=== PATIENT | female | born 1985 | race Caucasian/White ===

== ENCOUNTER 2019-03-09 20:36 | Emergency (ER) | payer MEDICAID ==
[~2019-03-09] VITALS: Ht 162.6 cm; Wt 49.9 kg
[2019-03-09 21:12] VITALS: BP 109/59
--- NOTE | 2019-03-09 21:34 | Emergency Room Report ---
History of Present Illness General Chief Complaint: Female Urogenital Problems Source: Patient Present Illness HPI She is a 31-year-old female who presented after possible retained tampon. She denies any significant pain. She states she is currently on her menses. Patient attempted to remove the tampon and did not have any success. She denies any fever or discharge. She denies any significant pain. She reports having regular menses. Allergies: Coded Allergies: MONOSODIUM GLUTAMATE (Verified Allergy, Unknown, 03/09/19) Patient History Past Medical History: see triage record Last Menstrual Period: T Now: No Reviewed Nursing Documentation: PMH: Agreed; PSxH: Agreed Nursing Documentation-PMH Past Medical History: No History, Except For Review of Systems All Other Systems: negative except mentioned in HPI Physical Exam Vital Signs Date Time Temp Pulse Resp B/P (MAP) Pulse Ox O2 Delivery O2 Flow Rate FiO2 03/09/19 20:41 98.2 78 18 109/59 (76) 97 Room Air General Appearance: well appearing, no apparent distress, alert, GCS 15 Head: normocephalic, atraumatic ENT: hearing grossly normal, normal voice Neck: full range of motion, supple Respiratory: no respiratory distress, speaking full sentences Cardiovascular #1: normal inspection Genitourinary: normal inspection, os closed, other - no foreign body Musculoskeletal: no calf tenderness Neurologic: normal inspection, alert, oriented x3, normal gait Psychiatric: mood/affect normal Skin: no rash Medical Decision Making Diagnostic Impression: Primary Impression: No foreign body found on evaluation ER Course Patient presented for possible retained tampon. Differential diagnosis include was not limited to foreign body, normal menses, loss tampon among others. Patient has a benign exam and does not appear to require any further imaging or laboratory testing at this time. Pelvic exam showed no evidence of retained foreign body. Patient was advised to recheck with her [employer] for repeat evaluation especially if she began having some discharge. The patient does not appear to have any significant discomfort at this time and appears stable for discharge. Last Vital Signs Date Time Temp Pulse Resp B/P (MAP) Pulse Ox O2 Delivery O2 Flow Rate FiO2 03/09/19 21:12 98.2 66 18 109/59 97 Room Air Status: improved Disposition: HOME, SELF-CARE Condition: Stable Mick Shirley MD Mar 09, 2019 21:34
[2019-03-09 21:40] VITALS: BP 109/59
== END 2019-03-09 21:40 | disposition home or self-care (01) ==
LOC: EMR 21:08
DX: Z04.89 Encounter for examination and observation for other specified reasons (principal)
CPT/HCPCS: 99281